=== PATIENT | female | born 1965 | race African-American/Black ===

== ENCOUNTER 2023-03-10 09:51 | Emergency (ER) | payer SELFPAY ==
[~2023-03-10] VITALS: Ht 152.4 cm; Wt 68.0 kg
[2023-03-10 10:19] VITALS: O2SAT 100
[2023-03-10] MEDS ORDERED: LIDOCAINE 5% PATCH TOP SCH (11:00)
[2023-03-10] MEDS ORDERED: KETOROLAC 30MG/ML VIAL IM ONE (11:00)
[2023-03-10] MEDS ORDERED: NAPR375T5 MT (13:10)
[2023-03-10] MEDS ORDERED: TOPUD MT (13:10)
[2023-03-10] MEDS ORDERED: LIDO700A15 TP (13:10)
[2023-03-10 13:30] VITALS: BP 127/76; PULSE 72; RESP 16; TEMP 98.4
== END 2023-03-10 13:32 | disposition home or self-care (01) ==
LOC: ER 09:51
DX: S16.1XXA Strain of muscle, fascia and tendon at neck level, initial encounter (principal); R51.9 Headache, unspecified; I10 Essential (primary) hypertension; E78.00 Pure hypercholesterolemia, unspecified; Z88.0 Allergy status to penicillin; Z98.890 Other specified postprocedural states; Z90.710 Acquired absence of both cervix and uterus; X58.XXXA Exposure to other specified factors, initial encounter; Y93.89 Activity, other specified; Y92.89 Other specified places as the place of occurrence of the external cause; Y99.8 Other external cause status
CPT/HCPCS: 99285; 70450; 81025; 96372; J1885

== ENCOUNTER 2023-05-07 08:51 | Emergency (ER) | payer BC ==
[~2023-05-07] VITALS: Ht 160 cm; Wt 72.0 kg
[~2023-05-07 08:51] MED LIST: LIDO700A15 TP; NAPR375T5 MT; TOPUD MT
[2023-05-07 09:09] VITALS: TEMP 98.6; O2SAT 95
[2023-05-07] MEDS ORDERED: KETOROLAC 30MG/ML VIAL IM ONE (09:30)
[2023-05-07] MEDS ORDERED: IBUP-2029 MT (09:34)
[2023-05-07 10:10] VITALS: BP 164/98; PULSE 98; RESP 18
== END 2023-05-07 10:11 | disposition home or self-care (01) ==
LOC: ER 08:51
DX: M54.2 Cervicalgia (principal); E78.00 Pure hypercholesterolemia, unspecified; I10 Essential (primary) hypertension; Z88.0 Allergy status to penicillin; Z98.890 Other specified postprocedural states
CPT/HCPCS: 99283; 96372; J1885